=== PATIENT | female | born 1990 | race Caucasian/White ===

== ENCOUNTER 2021-06-15 00:46 | Emergency (ER) | payer BC, OTHER ==
[~2021-06-15] VITALS: Ht 167.6 cm; Wt 59.0 kg
--- NOTE | ~2021-06-15 | EMS ---
[facility] [address] [place] [address] EMS Patient Care Report Name: TIM JACOB GENE Room #: DEP Marisol#: [id number] Admission: 06/15/21 Attend Phys: Discharge: 06/15/21 Date of : [birth year] Report #: [id number] THIS REPORT FOR: //name// Report Transmitted: 06/16/2021 14:19 EMS Care Summary [place], [place]/[facility] Incident [id number] @ 06/15/2021 00:07 Incident Location [id number] [place] [id number] Patient TIM JACOB Female, 31 Years 1990 Patient Address [id number] [place] [address] Chief Complaint unresponsive/intoxicated Disposition Transported No Lights/[place] Dispatch Reason Overdose/Poisoning/Ingestion Transported To [facility] Narrative pt found on floor, unresponsive. boyfriend called 911 for pt. he states they were at [employer] [place] drinking alcohol and when he got pt home he had to carry her into the house. he is concerned because she is unresponsive and has had too much to drink. pt opens eyes to painful stimuli, no other response. she vomits shortly after our arrival. pt lifted to cot, placed on R side. tx as listed in flow chart. transport w/o change. report to staff on arrival, rm 2. Initial Vitals @00:28P: 85,R: 16,BP: 103/80,GCS: 9,Glucose: 103,SpO2: 95,Revised Trauma: 11, Assessments [facility] [address] [place] [address] EMS Patient Care Report Name: TIM JACOB [facility] Room #: DEP [facility] [id number] Admission: 06/15/21 Attend Phys: Discharge: 06/15/21 Date of : [birth year] Report #: [id number] @00:17MENTAL:Unresponsive,SKIN:No Abnormalities,HEENT:Eyes: Left Pupil: 4-mm,Eyes: Right Pupil: 4-mm,LUNG SOUNDS:General: Vomiting,ABDOMEN:General: Vomiting,PELVIS//GI:EXTREMITIES:PULSE:Radial: 2+ Normal,NEURO:Other, Impression Overdose - Alcohol Procedures @00:17 ALS Assessment Response: UnchangedSucceeded @00:31 Zofran - 4 Milligrams (mg) - Intravenous (IV) Response: Unchanged @00:21 Stretcher Response: Unchanged @00:30 IV Therapy - Saline Lock 10cc (20 ga) Site: Antecubital-Left Response: UnchangedSucceeded Timeline 00:05,Call Received 00:05,Dispatch Notified 00:07,Dispatched 00:08,En Route 00:15,On Scene 00:17,At Patient 00:17,ALS Assessment,Response: UnchangedSucceeded, 00:21,Stretcher,Response: Unchanged 00:28,BP: 103/80 M,PULSE: 85,RR: 16 R,SPO2: 95 Ox,ETCO2: ,B,PAIN: ,GCS: 9, 00:30,IV Therapy - Saline Lock 10cc 20 ga Site: Antecubital-Left,Response: UnchangedSucceeded, 00:31,Zofran - 4 Milligrams (mg) - Intravenous (IV),Response: Unchanged 00:38,Depart Scene 00:44,At Destination 01:02,Call Closed Disclaimer v1.1 Copyright 2020 [employer] This EMS Care Summary contains data elements from the applicable legal record (which may be displayed differently). It is designed to provide pertinent information for the following purposes: continuity of care, clinical quality, and state data reporting. The complete legal record is available to ED staff and administrators of the receiving hospital in [employer]'s Patient Tracker. All data is provided "as is."
--- NOTE | ~2021-06-15 | EMS ---
[facility] [address] [place] [address] EMS Patient Care Report Name: TIM JACOB Room #: PRE ER M.R.#: [id number] Admission: Attend Phys: Discharge: Date of : [birth year] Report #: [id number] THIS REPORT FOR: //name// Report Transmitted: 06/15/2021 00:47 EMS Care Summary [place], [place] Incident [id number] @ 06/15/2021 00:07 Incident Location [id number] [place] [address] Patient TIM JACOB Female, 31 Years 1990 Patient Address [address] [place] [address] Chief Complaint unresponsive/intoxicated Disposition Transported No Lights/[place] Dispatch Reason Overdose/Poisoning/Ingestion Transported To [facility] Narrative pt found on floor, unresponsive. boyfriend called 911 for pt. he states they were at [employer] drinking alcohol and when he got pt home he had to carry her into the house. he is concerned because she is unresponsive and has had too much to drink. pt opens eyes to painful stimuli, no other response. she vomits shortly after our arrival. pt lifted to cot, placed on R side. tx as listed in flow chart. transport w/o change. report to staff on arrival, rm 2. Initial Vitals @00:28P: 85,R: 16,BP: 103/80,GCS: 9,Glucose: 103,SpO2: 95,Revised Trauma: 11, Assessments [facility] [address] [place] [address] EMS Patient Care Report Name: TIM JACOB Room #: PRE M.R.#: [id number] Admission: Attend Phys: Discharge: Date of : 89 Report #: [id number] @00:17MENTAL:Unresponsive,SKIN:No Abnormalities,HEENT:Eyes: Right Pupil: 4-mm,Eyes: Left Pupil: 4-mm,LUNG SOUNDS:General: Vomiting,ABDOMEN:General: Vomiting,PELVIS//GI:EXTREMITIES:PULSE:Radial: 2+ Normal,NEURO:Other, Impression Overdose - Alcohol Procedures @00:17 ALS Assessment Response: UnchangedSucceeded @00:31 Zofran - 4 Milligrams (mg) - Intravenous (IV) Response: Unchanged @00:21 Stretcher Response: Unchanged @00:30 IV Therapy - Saline Lock 10cc (20 ga) Site: Antecubital-Left Response: UnchangedSucceeded Timeline 00:05,Call Received 00:05,Dispatch Notified 00:07,Dispatched 00:08,En Route 00:15,On Scene 00:17,At Patient 00:17,ALS Assessment,Response: UnchangedSucceeded, 00:21,Stretcher,Response: Unchanged 00:28,BP: 103/80 M,PULSE: 85,RR: 16 R,SPO2: 95 Ox,ETCO2: ,B,PAIN: ,GCS: 9, 00:30,IV Therapy - Saline Lock 10cc 20 ga Site: Antecubital-Left,Response: UnchangedSucceeded, 00:31,Zofran - 4 Milligrams (mg) - Intravenous (IV),Response: Unchanged 00:38,Depart Scene 00:44,At Destination 01:02,Call Closed Disclaimer v1.1 Copyright 2020 [employer] This EMS Care Summary contains data elements from the applicable legal record (which may be displayed differently). It is designed to provide pertinent information for the following purposes: continuity of care, clinical quality, and state data reporting. The complete legal record is available to ED staff and administrators of the receiving hospital in [employer]'s Patient Tracker. All data is provided "as is."
[2021-06-15] MEDS ORDERED: ZOFRAN ODT4 MG PO (04:25)
[2021-06-15 05:03] VITALS: BP 101/66
== END 2021-06-15 05:04 | disposition home or self-care (01) ==
LOC: ER 00:46
DX: F10.129 Alcohol abuse with intoxication, unspecified (principal); Y90.8 Blood alcohol level of 240 mg/100 ml or more